=== PATIENT | female | born 1995 | race Caucasian/White ===

== ENCOUNTER 2018-06-01 02:58 | Emergency (ER) | payer OTHER ==
[~2018-06-01] VITALS: Ht 162.6 cm; Wt 63.5 kg
[2018-06-01 05:04] VITALS: BP 118/74
== END 2018-06-01 05:05 | disposition home or self-care (01) ==
LOC: M.ERS 02:58
DX: R04.0 Epistaxis (principal); Z88.7 Allergy status to serum and vaccine